=== PATIENT | male | born 1990 | race Caucasian/White ===

== ENCOUNTER 2018-04-09 07:20 | Observation (INO) ==
[2018-04-09 07:58] LABS: Basophils # 0.1 K/mcL (0.0-0.2); Basophils % 0.4 %; Eosinophils # 0.2 K/mcL (0.0-0.6); Eosinophils % 1.5 %; Hematocrit 39.8 % (37.5-50.1); Hemoglobin 13.8 g/dL (12.9-16.9); Immature Granulocytes % 0.3 % (0-4); Lymphocytes # 3.5 K/mcL (0.6-4.6); Mean Corpuscular HGB Conc 34.7 g/dL (31.6-35.5); Mean Corpuscular Hemoglobin 31.4 pg (28.0-33.3); Mean Corpuscular Volume 90.5 fL (83.0-100.0); Mean Platelet Volume 8.2 fL (9.4-12.4); Monocytes # 1.4 K/mcL (0.0-1.3); Monocytes % 9.1 %; Platelet Count 325 K/mcL (140-400); Red Cell Distribution Width 12.6 % (11.5-14.5); Segmented Neutrophils % 65.7 %
[2018-04-09 08:17] LABS: BUN/Creatinine Ratio 20 (6-26); Blood Urea Nitrogen 12 mg/dL (6-20); Calcium 9.4 mg/dL (8.6-10.3); Carbon Dioxide 30 mEq/L (23-29); Chloride 100 mEq/L (98-107); Glucose 88 mg/dL (70-105); Osmolality,Calculated 281 (280-300); Sodium 136 mEq/L (136-145); eGFR For Non-African Americans > 60 (> 60)
--- NOTE | 2018-04-09 08:48 | Emergency Department Note ---
Disposition Clinical Impression: Cellulitis Qualifiers: Site of cellulitis: extremity Site of cellulitis of extremity: upper extremity Laterality: right Qualified Code(s): L03.113 - Cellulitis of right upper limb Disposition: Home, Self-Care Condition: Good Time of Disposition: 13:06 General Adult HPI - General Chief complaint: ED Extremity Injury, Upper Stated complaint: LUE pain Time Seen by Provider: 04/09/18 07:27 Source: patient, family Mode of arrival: private vehicle Limitations: no limitations Nursing Notes Reviewed: Yes Vital Signs Reviewed: Yes - History of Present Illness HPI Narrative: Chao is a pleasant 27-year-old male with a past medical history of IVDA. He presents the emergency room with a chief complaint of pain and swelling to his left forearm 2 days. He states that he is concerned for a splinter. He denies fevers chest pain shortness of breath. He notes that his cigarette smoker. He is otherwise healthy. He is not have a family practice physician. Onset (ago): day(s) Location: right, upper extremity Pain Scale: 7 Quality: aching Consistency: constant Improves with: nothing Worsens with: movement Associated symptoms: Reports: denies other symptoms Treatments Prior to Arrival: NSAID - Related Data Previous Rx's Medication Instructions Recorded Sulfamethoxazole/Trimeth DS 1 each PO BID 7 Days tablet 12/02/16 [Bactrim DS] Allergies Allergy/AdvReac Type Severity Reaction Status Date / Time No Known Allergies Allergy Verified 12/02/16 14:51 All systems ED: reviewed and negative except as stated. Review of Systems: As Per HPI Past Medical History - Past Medical History Medical history: Reports: no medical history Psychiatric history: Reports: depression - Social History Smoking Status: Current every day smoker Smokeless Tobacco Status: No Alcohol use: Reports: none Drug use: Reports: none Physical Exam Generalized swelling to right forearm with mild erythema. Elbow and wrist do not appear to be involved. There is no erythema. 2+ radial pulse. No swelling in hand. No Knavel signs. A few track sierra are present on right arm. - General General appearance: alert, in no apparent distress, appears intoxicated - Head Head exam: atraumatic - Eye Eye exam: Present: normal appearance, PERRL, EOMI - ENT ENT exam: normal exam - Neck Neck exam: Present: normal inspection - Chest Chest inspection: Present: normal inspection - Respiratory Respiratory exam: Present: normal lung sounds bilaterally - Cardiovascular Cardiovascular exam: Present: regular rate - Abdominal Exam Abdominal exam: Present: soft - Expanded Upper Extremity Exam Elbow exam: Present: normal inspection Forearm/Wrist exam: Present: tenderness, swelling. Absent: deformity, crepitus, dislocation, tenderness over anatomical snuff box Hand exam: Present: normal inspection Vascular exam: Normal: capillary refill - Expanded Lower Extremity Exam Neurovascular/Tendon exam: Present: normal capillary refill - Neurological Exam Neurological exam: Present: alert, oriented X3 - Psychiatric Psychiatric exam: Present: normal affect, normal mood Course Vital Signs Temperature 99.1 F 04/09/18 07:26 Pulse Rate 120 04/09/18 07:26 Respiratory Rate 18 04/09/18 07:26 Blood Pressure 123/82 04/09/18 07:26 O2 Sat by Pulse Oximetry 99 04/09/18 07:26 Temperature 99.1 F 04/09/18 07:37 Pulse Rate 114 04/09/18 11:52 Respiratory Rate 12 04/09/18 11:52 Blood Pressure 125/87 04/09/18 11:52 O2 Sat by Pulse Oximetry 100 04/09/18 11:52 Oxygen Delivery Oxygen Delivery Room Air Medical Decision Making - MDM Narrative Medical decision making narrative: No discrete fluid abscess,. Patient does meet SIRS criteria with a 15,000 white count and is in the 120s. Vancomycin was started in the emergency room. Patient was kept nothing by mouth prior to results of CT being resulted. Patient was admitted to monitor cellulitis for worsening infection in pain. - Medical Records Medical records reviewed: Yes I reviewed the patient's medical records. - Lab Data Lab results reviewed: Yes I reviewed the patient's lab results. Result diagrams: 04/09/18 07:49 04/09/18 07:49 Lab Results 04/09/18 04/09/18 04/09/18 Range/Units 07:49 07:49 09:12 WBC 15.2 H (4.3-11.1) K/mcL RBC 4.40 (4.19-5.50) M/mcL Hgb 13.8 (12.9-16.9) g/dL Hct 39.8 (37.5-50.1) % MCV 90.5 (83.0-100.0) fL MCH 31.4 (28.0-33.3) pg MCHC 34.7 (31.6-35.5) g/dL RDW 12.6 (11.5-14.5) % Plt Count 325 (140-400) K/mcL MPV 8.2 L (9.4-12.4) fL Immature Gran % 0.3 (0-4) % Seg Neutrophils % 65.7 % Lymphocytes % 23.0 % Monocytes % 9.1 % Eosinophils % 1.5 % Basophils % 0.4 % Neutrophils # 10.0 H (1.6-8.9) K/mcL Lymphocytes # 3.5 (0.6-4.6) K/mcL Monocytes # 1.4 H (0.0-1.3) K/mcL Eosinophils # 0.2 (0.0-0.6) K/mcL Basophils # 0.1 (0.0-0.2) K/mcL Sodium 136 (136-145) mEq/L Potassium 3.0 L (3.5-5.1) mEq/L Chloride 100 (98-107) mEq/L Carbon Dioxide 30 H (23-29) mEq/L BUN 12 (6-20) mg/dL Creatinine 0.60 L (0.70-1.30) mg/dL Est GFR ( Amer) > 60 (> 60) Est GFR (Non-Af Amer) > 60 (> 60) BUN/Creatinine Ratio 20 (6-26) Glucose 88 (70-105) mg/dL Calculated Osmolality 281 (280-300) Lactic Acid 1.0 (0.5-2.2) mmol/L Calcium 9.4 (8.6-10.3) mg/dL - Radiology Data Radiology results reviewed: Yes I reviewed the patient's radiology results.
[2018-04-09] MEDS ORDERED: Isovue-370 500 ML INFUS..BTL IV ONE (08:51)
[2018-04-09] MEDS ORDERED: Ketamine *HR* 15 MG in 0.9 % Sodium Chloride 100 ML IVPB ONE (08:52)
--- NOTE | 2018-04-09 09:27 | Emergency Department Note ---
Disposition Clinical Impression: Cellulitis Qualifiers: Site of cellulitis: extremity Site of cellulitis of extremity: upper extremity Laterality: right Qualified Code(s): L03.113 - Cellulitis of right upper limb Disposition: Home, Self-Care Condition: Good General Adult HPI - General Chief complaint: ED Extremity Injury, Upper Stated complaint: LUE pain Time Seen by Provider: 04/09/18 07:27 - History of Present Illness Pain Scale: 7 - Related Data Previous Rx's Medication Instructions Recorded Sulfamethoxazole/Trimeth DS 1 each PO BID 7 Days tablet 12/02/16 [Bactrim DS] Allergies Allergy/AdvReac Type Severity Reaction Status Date / Time No Known Allergies Allergy Verified 12/02/16 14:51 Past Medical History - Past Medical History Medical history: Reports: no medical history Psychiatric history: Reports: depression - Social History Smoking Status: Current every day smoker Smokeless Tobacco Status: No Alcohol use: Reports: none Drug use: Reports: none Physical Exam - General General appearance: alert, in no apparent distress, appears intoxicated Course Vital Signs Temperature 99.1 F 04/09/18 07:26 Pulse Rate 120 04/09/18 07:26 Respiratory Rate 18 04/09/18 07:26 Blood Pressure 123/82 04/09/18 07:26 O2 Sat by Pulse Oximetry 99 04/09/18 07:26 Temperature 99.1 F 04/09/18 07:37 Pulse Rate 114 04/09/18 12:56 Respiratory Rate 13 04/09/18 12:56 Blood Pressure 136/97 04/09/18 12:56 O2 Sat by Pulse Oximetry 97 04/09/18 12:56 Oxygen Delivery Oxygen Delivery Room Air Medical Decision Making - Lab Data Result diagrams: 04/09/18 07:49 04/09/18 07:49 Lab Results 04/09/18 04/09/18 04/09/18 Range/Units 07:49 07:49 09:12 WBC 15.2 H (4.3-11.1) K/mcL RBC 4.40 (4.19-5.50) M/mcL Hgb 13.8 (12.9-16.9) g/dL Hct 39.8 (37.5-50.1) % MCV 90.5 (83.0-100.0) fL MCH 31.4 (28.0-33.3) pg MCHC 34.7 (31.6-35.5) g/dL RDW 12.6 (11.5-14.5) % Plt Count 325 (140-400) K/mcL MPV 8.2 L (9.4-12.4) fL Immature Gran % 0.3 (0-4) % Seg Neutrophils % 65.7 % Lymphocytes % 23.0 % Monocytes % 9.1 % Eosinophils % 1.5 % Basophils % 0.4 % Neutrophils # 10.0 H (1.6-8.9) K/mcL Lymphocytes # 3.5 (0.6-4.6) K/mcL Monocytes # 1.4 H (0.0-1.3) K/mcL Eosinophils # 0.2 (0.0-0.6) K/mcL Basophils # 0.1 (0.0-0.2) K/mcL Sodium 136 (136-145) mEq/L Potassium 3.0 L (3.5-5.1) mEq/L Chloride 100 (98-107) mEq/L Carbon Dioxide 30 H (23-29) mEq/L BUN 12 (6-20) mg/dL Creatinine 0.60 L (0.70-1.30) mg/dL Est GFR ( Amer) > 60 (> 60) Est GFR (Non-Af Amer) > 60 (> 60) BUN/Creatinine Ratio 20 (6-26) Glucose 88 (70-105) mg/dL Calculated Osmolality 281 (280-300) Lactic Acid 1.0 (0.5-2.2) mmol/L Calcium 9.4 (8.6-10.3) mg/dL Attestation Statement - Attestation Attestation: For this encounter, I have reviewed the [employer] DEVELOPMENT MANAGER or PA documentation, treatment plan, and medical decision making; and I have had face to face time with this patient. Significant swelling and pain to the forearm. Last use IV drugs a day or 2 ago, last injection in this arm about a month ago. No crepitus. No obvious abscess on exam. He has limitation of motion secondary to pain but the hand is neurovascularly intact and I do not suspect compartment syndrome. IV vancomycin administered, CT with contrast ordered. Sub-dissociative ketamine ordered for pain.
[2018-04-09 12:31] LABS: HIV-1&2 Antibody & p24 Ag Nonreactive (Nonreactive); Hepatitis B Core IgM Nonreactive (Nonreactive); Hepatitis B Surface Antigen Nonreactive (Nonreactive)
[2018-04-09] MEDS: Nicotine 21 MG PATCH.TD24 TD SCH (13:10)
--- NOTE | 2018-04-09 13:13 | Internal Med History&Physical ---
Date of Encounter: 04/09/18 Time of Encounter: 13:11 Internal Medicine - H&P: HPI Chief complaint: right arm swelling Admitted From: Emergency Dept Plans for Post Hospital Care: Home History of present illness: Mr. Berman is a 27 year old male Patient with history of IV drug abuse, depression, smoking history. Patient presented emergency room with left arm swelling and redness CT scan of the arm shows no abscess the chest cellulitis white count 15,000 patient started on vancomycin will be admitted for right arm cellulitis Past Med Surg Social Fam HX - Past Medical History Medical history: no medical history Psychiatric history: depression - Social History Smoking Status: Current every day smoker Smokeless Tobacco Status: No Alcohol use: none Drug use: none Internal Medicine - H&P: Meds Sulfamethoxazole/Trimeth DS [Bactrim DS] 1 each PO BID 7 Days tablet 12/02/16 [Rx] Allergy/AdvReac Type Severity Reaction Status Date / Time No Known Allergies Allergy Verified 12/02/16 14:51 All Systems PM: A 10-system review of systems was performed and is negative for pertinent findings except as documented above in the HPI. - Constitutional Vitals: Temp Pulse Resp BP Pulse Ox 99.1 F 114 13 136/97 97 04/09/18 07:37 04/09/18 12:56 04/09/18 12:56 04/09/18 12:56 04/09/18 12:56 Exam: done - Eye Eye exam: Present: PERRL, conjuntiva pink, sclera anicteric Pupils: Present: PERRL - Neck Neck exam general surgery: Present: supple, trachea midline. Absent: lymphadenopathy - Respiratory Respiratory exam: Present: CTAB. Absent: accessory muscle use, rales, rhonchi, wheezes - Cardiovascular Cardiovascular exam: Present: RRR, +S1, +S2. Absent: diastolic murmur, gallop, rubs, systolic murmur - GI/Abdominal GI/Abdominal exam: Present: normal bowel sounds, soft, no peritoneal signs. Absent: distended, tenderness - Extremities Exam Extremities exam: Present: tenderness, warm Internal Med - H&P Results - Labs CBC & Chem 7: 04/09/18 07:49 04/09/18 07:49 Labs: Short CBC 04/09/18 Range/Units 07:49 WBC 15.2 H (4.3-11.1) K/mcL Hgb 13.8 (12.9-16.9) g/dL Hct 39.8 (37.5-50.1) % Plt Count 325 (140-400) K/mcL Neutrophils # 10.0 H (1.6-8.9) K/mcL BMP 04/09/18 07:49 Sodium 136 Potassium 3.0 L Chloride 100 Carbon Dioxide 30 H BUN 12 Creatinine 0.60 L Glucose 88 Calcium 9.4 - Impressions ITS Impressions Forearm X-Ray 04/09/18 07:44 IMPRESSION: 1. Soft tissue swelling along the anterior and medial aspect of the right forearm which may be related to contusion versus infection. No retained radiopaque foreign body. 2. No fracture. D/ / 04/09/2018 08:24:26 Gabriel Posada MD / zora Interpreting Provider: Gabriel Posada MD Forearm CT 04/09/18 08:51 IMPRESSION: 1. Nonspecific swelling of the medial forearm with fluid extending between the fascia of the flexor musculature along the mid forearm. This could represent cellulitis in the appropriate clinical setting. 2. No drainable fluid collection is present. 3. No foci of soft tissue air. D/ / Anton Pedroza / Anton Pedroza Interpreting Provider: Anton Pedroza - Assessment and plan (1) IV drug abuse Current Visit: Yes Status: Chronic Assessment and plan: Patient reports IV drug admitted for about 2 years (2) Depression Current Visit: Yes Status: Chronic Assessment and plan: Resume home medication Qualifiers: Depression Type: unspecified Qualified Code(s): F32.9 - Major depressive disorder, single episode, unspecified (3) Hypokalemia Current Visit: Yes Status: Acute Assessment and plan: Replace potassium and recheck in a.m. (4) Cellulitis Current Visit: Yes Status: Acute Assessment and plan: Patient started on vancomycin CT does not show any abscess Qualifiers: Site of cellulitis: extremity Site of cellulitis of extremity: upper extremity Laterality: right Qualified Code(s): L03.113 - Cellulitis of right upper limb - Time Spent With Patient Total time spent is greater than 50% in coordination of care (as documented) at patient's floor/unit and/or counseling patient:
[2018-04-09] MEDS ORDERED: Naloxone 0.4 MG/ML INJ IVP PRN (13:17)
[2018-04-09 13:22] LABS: Hepatitis A Antibody IgM Reactive (Nonreactive)
[2018-04-09 13:23] LABS: Hepatitis C Virus Antibody Reactive (Nonreactive)
[2018-04-09] MEDS: Ketorolac 30 MG/ML VIAL IVP PRN ×2 (14:49→21:56)
[2018-04-10 03:59] LABS: Hematocrit 38.8 % (37.5-50.1); Hemoglobin 13.5 g/dL (12.9-16.9); Mean Corpuscular HGB Conc 34.8 g/dL (31.6-35.5); Mean Corpuscular Hemoglobin 31.4 pg (28.0-33.3); Mean Corpuscular Volume 90.2 fL (83.0-100.0); Mean Platelet Volume 8.4 fL (9.4-12.4); Platelet Count 313 K/mcL (140-400); Red Cell Distribution Width 12.7 % (11.5-14.5)
[2018-04-10 04:21] LABS: Alanine Aminotransferase 106 Units/L (7-52); Albumin 3.9 g/dL (3.5-5.7); Albumin/Globulin Ratio 1.2 (1.1-2.2); Alkaline Phosphatase 101 Units/L (34-104); Aspartate Amino Transferase 55 Units/L (13-39); BUN/Creatinine Ratio 22 (6-26); Bilirubin,Total 0.9 mg/dL (0.3-1.0); Blood Urea Nitrogen 11 mg/dL (6-20); Calcium 9.1 mg/dL (8.6-10.3); Carbon Dioxide 27 mEq/L (23-29); Chloride 102 mEq/L (98-107); Globulin 3.3 g/dL (2.4-3.5); Glucose 106 mg/dL (70-105); Magnesium 2.1 mg/dL (1.6-2.6); Osmolality,Calculated 278 (280-300); Potassium 3.5 mEq/L (3.5-5.1); Sodium 134 mEq/L (136-145); Total Protein 7.2 g/dL (6.4-8.9); eGFR For Non-African Americans > 60 (> 60)
[2018-04-10] MEDS: Ketorolac 30 MG/ML VIAL IVP PRN ×3 (05:55→21:45)
[2018-04-10] MEDS: Nicotine 21 MG PATCH.TD24 TD SCH (10:07)
--- NOTE | 2018-04-10 14:18 | Internal Med Progress Note ---
Hospitalist Progress Note - Encounter Date of Encounter: 04/10/18 Time of Encounter: 14:15 - Subjective Interval History: Mr. Marinelli is a 27-year-old male with history of IV drug abuse. He presents to ED with right arm swelling and redness as well as pain and decreased ROM of right hand. Subsequently, he was a minute for IV antibiotics was started on [place] ncomycin. He reports that the cellulitis is improving as well as range of motion. He is continuing to have pain in his right forearm currently is tolerable. - Exam Vitals: Temp Pulse Resp BP Pulse Ox 98.7 F 105 16 127/72 99 04/10/18 11:11 04/10/18 11:11 04/10/18 11:11 04/10/18 11:11 04/10/18 11:11 Exam: PHYSICAL EXAMINATION: GENERAL: NAD, a and O 3 NECK: Supple. No carotid bruits. No lymphadenopathy or thyromegaly. LUNGS: Clear to auscultation B/L AP and L. HEART: Regular rate and rhythm, S1, S2 without murmur. ABDOMEN: Soft, nontender, and nondistended. Positive bowel sounds. No hepatosp lenomegaly was noted. EXTREMITIES: Without any cyanosis, clubbing, rash, lesions or edema. Without Janeway's lesions or Osler's nodes, visible track sierra throughout B/L upper extremities most notably on hand NEUROLOGIC: Cranial nerves II through XII are grossly intact. PSYCHIATRIC: Appropriate affect, denies SI/HI, without agitation or anxiety SKIN: Right forearm mildly swollen along superior dorsal aspect. It is without induration or fluctuance. Distal circulation intact. Full range of motion to right hand - Assessment and Plan (1) Cellulitis Current Visit: Yes Status: Acute Assessment and Plan: Cellulitis of dorsal aspect of right forearm secondary to IVDU Continue to treat with IV vancomycin pharmacy dosing Cellulitis improving overnight Continues to have leukocytosis with WBC of 16.1 However he is nontoxic appearing, afebrile without tachypnea and hemodynamically stable. 2 positive SIRS criteria with tachycardia and leukocytosis however does not meet sepsis qualifications Blood cultures pending-follow cultures and adjust antibiotics accordingly (2) Hypokalemia Current Visit: Yes Status: Resolved (3) IV drug abuse Current Visit: Yes Status: Chronic Assessment and Plan: Chronic Treat as above (4) Hepatitis C Current Visit: Yes Status: Acute Assessment and Plan: Will need outpatient follow-up with GI Mild transaminitis Check hepatic panel The patient is without jaundice and sclera nonicteric (5) Hepatitis A Current Visit: Yes Status: Acute - Time Spent with Patient Total time spent is greater than 50% in coordination of care (as documented) at patient's floor/unit and/or counseling patient: less than 15 minutes Plan of Care Discussed with: patient Internal Medicine: Result - Labs CBC & Chem 7: 04/10/18 03:47 04/10/18 03:46 Labs: Short CBC 04/10/18 Range/Units 03:47 WBC 16.1 H (4.3-11.1) K/mcL Hgb 13.5 (12.9-16.9) g/dL Hct 38.8 (37.5-50.1) % Plt Count 313 (140-400) K/mcL BMP 04/10/18 03:46 Sodium 134 L Potassium 3.5 Chloride 102 Carbon Dioxide 27 BUN 11 Creatinine 0.50 L Glucose 106 H Calcium 9.1 Liver Function 04/10/18 Range/Units 03:46 Total Bilirubin 0.9 (0.3-1.0) mg/dL AST 55 H (13-39) Units/L ALT 106 H (7-52) Units/L Alkaline Phosphatase 101 (34-104) Units/L Albumin 3.9 (3.5-5.7) g/dL Consult Discharge Plan - Plan Referrals: NONE,PCP [Primary Care Provider] - (1) Cellulitis Qualifiers: Site of cellulitis: extremity Site of cellulitis of extremity: upper extremity Laterality: right Qualified Code(s): L03.113 - Cellulitis of right upper limb (4) Hepatitis C Qualifiers: Hepatic coma status: without hepatic coma
[2018-04-10 15:27] LABS: Albumin 3.7 g/dL (3.5-5.7); Albumin/Globulin Ratio 1.1 (1.1-2.2); Bilirubin,Direct 0.2 mg/dL (0.0-0.2); Bilirubin,Indirect 0.4 mg/dL (0.0-1.2); Bilirubin,Total 0.6 mg/dL (0.3-1.0); Globulin 3.3 g/dL (2.4-3.5)
[2018-04-11 05:33] LABS: Basophils # 0.1 K/mcL (0.0-0.2); Basophils % 0.5 %; Eosinophils # 0.5 K/mcL (0.0-0.6); Eosinophils % 3.3 %; Hematocrit 38.5 % (37.5-50.1); Hemoglobin 13.1 g/dL (12.9-16.9); Immature Granulocytes % 0.2 % (0-4); Lymphocytes # 3.7 K/mcL (0.6-4.6); Lymphocytes % 25.1 %; Mean Corpuscular Hemoglobin 31.1 pg (28.0-33.3); Mean Corpuscular Volume 91.4 fL (83.0-100.0); Mean Platelet Volume 8.8 fL (9.4-12.4); Monocytes # 1.4 K/mcL (0.0-1.3); Monocytes % 9.5 %; Platelet Count 328 K/mcL (140-400); Red Blood Count 4.21 M/mcL (4.19-5.50); Red Cell Distribution Width 12.8 % (11.5-14.5); Segmented Neutrophils % 61.4 %
[2018-04-11 05:53] LABS: BUN/Creatinine Ratio 19 (6-26); Blood Urea Nitrogen 9 mg/dL (6-20); Calcium 8.5 mg/dL (8.6-10.3); Carbon Dioxide 27 mEq/L (23-29); Chloride 104 mEq/L (98-107); Glucose 111 mg/dL (70-105); Osmolality,Calculated 285 (280-300); Potassium 3.3 mEq/L (3.5-5.1); Sodium 138 mEq/L (136-145); eGFR For Non-African Americans > 60 (> 60)
[2018-04-11] MEDS: Ketorolac 30 MG/ML VIAL IVP PRN ×3 (08:35→21:05)
[2018-04-11] MEDS: Nicotine 21 MG PATCH.TD24 TD SCH (08:35)
[2018-04-11] MEDS ORDERED: Aminoglycoside Consult 1 EACH MC ONE (12:44)
--- NOTE | 2018-04-11 13:33 | Internal Med Progress Note ---
Hospitalist Progress Note - Encounter Date of Encounter: 04/11/18 Time of Encounter: 13:24 - Subjective Interval History: Mr. Berman is a 27-year-old male with history of IV drug abuse. He presents to ED with right arm swelling and redness as well as pain and decreased ROM of right hand. He is concerned that the swelling in his forearm may have increased overnight. He is continuing to have pain in his right forearm but reports that the pain medication is helping. - Exam Vitals: Temp Pulse Resp BP Pulse Ox 98.2 F 108 19 144/78 99 04/11/18 11:51 04/11/18 11:51 04/11/18 11:51 04/11/18 11:51 04/11/18 11:51 Exam: PHYSICAL EXAMINATION: GENERAL: NAD, a and O 3 NECK: Supple. No carotid bruits. No lymphadenopathy or thyromegaly. LUNGS: Clear to auscultation B/L AP and L. HEART: Regular rate and rhythm, S1, S2 without murmur. ABDOMEN: Soft, nontender, and nondistended. Positive bowel sounds. No hepatosplenomegaly was noted. EXTREMITIES: Without any cyanosis, clubbing, rash, lesions or edema. visible track sierra throughout B/L upper extremities most notably on hands. Rt dorsal forearm is swollen and firm, there is a small palpable area of induration along the surface of the brachial radialis without fluctuance. Distal circulation remains intact, full ROM NEUROLOGIC: Cranial nerves II through XII are grossly intact. PSYCHIATRIC: Appropriate affect, denies SI/HI, without agitation or anxiety SKIN: Track sierra on bilateral hands - Assessment and Plan (1) Cellulitis Current Visit: Yes Status: Acute Assessment and Plan: Cellulitis of dorsal aspect of right forearm secondary to IVDU Continue to treat with IV vancomycin pharmacy dosing Cellulitis improving overnight Continues to have leukocytosis with WBC of 16.1 However he is nontoxic appearing, afebrile without tachypnea and hemodynamically stable. 2 positive SIRS criteria with tachycardia and leukocytosis however does not meet sepsis qualifications Blood cultures pending-follow cultures and adjust antibiotics accordingly 04/11-WBC improving. Patient appears non toxic. Swelling stable overnight. Change ABX to Clindamycin and add culturelle. (2) Hypokalemia Current Visit: Yes Status: Resolved Assessment and Plan: potassium 3.3 replete PRN (3) IV drug abuse Current Visit: Yes Status: Chronic (4) Hepatitis C Current Visit: Yes Status: Acute Assessment and Plan: Will need outpatient follow-up with GI Mild transaminitis Check hepatic panel The patient is without jaundice and sclera nonicteric (5) Hepatitis A Current Visit: Yes Status: Acute - Time Spent with Patient Total time spent is greater than 50% in coordination of care (as documented) at patient's floor/unit and/or counseling patient: less than 15 minutes Plan of Care Discussed with: patient Internal Medicine: Result - Labs CBC & Chem 7: 04/11/18 04:19 04/11/18 04:19 Labs: Short CBC 04/11/18 Range/Units 04:19 WBC 14.7 H (4.3-11.1) K/mcL Hgb 13.1 (12.9-16.9) g/dL Hct 38.5 (37.5-50.1) % Plt Count 328 (140-400) K/mcL Neutrophils # 9.0 H (1.6-8.9) K/mcL BMP 04/11/18 04:19 Sodium 138 Potassium 3.3 L Chloride 104 Carbon Dioxide 27 BUN 9 Creatinine 0.48 L Glucose 111 H Calcium 8.5 L Liver Function 04/10/18 Range/Units 14:49 Total Bilirubin 0.6 (0.3-1.0) mg/dL Direct Bilirubin 0.2 (0.0-0.2) mg/dL AST 42 H (13-39) Units/L ALT 95 H (7-52) Units/L Alkaline Phosphatase 97 (34-104) Units/L Albumin 3.7 (3.5-5.7) g/dL Consult Discharge Plan - Plan Referrals: NONE,PCP [Primary Care Provider] - (1) Cellulitis Qualifiers: Site of cellulitis: extremity Site of cellulitis of extremity: upper extremity Laterality: right Qualified Code(s): L03.113 - Cellulitis of right upper limb (4) Hepatitis C Qualifiers: Hepatic coma status: without hepatic coma
[2018-04-11] MEDS: Clindamycin 900 MG/50 ML 900 MG/50 ML IV.SOLN IVPB SCH (16:10)
[2018-04-12] MEDS: Clindamycin 900 MG/50 ML 900 MG/50 ML IV.SOLN IVPB SCH ×2 (00:12→10:06)
[2018-04-12 04:54] LABS: Basophils # 0.1 K/mcL (0.0-0.2); Basophils % 0.5 %; Eosinophils # 0.4 K/mcL (0.0-0.6); Eosinophils % 2.7 %; Hematocrit 34.5 % (37.5-50.1); Hemoglobin 12.3 g/dL (12.9-16.9); Immature Granulocytes % 0.4 % (0-4); Lymphocytes # 2.3 K/mcL (0.6-4.6); Lymphocytes % 17.4 %; Mean Corpuscular HGB Conc 35.7 g/dL (31.6-35.5); Mean Corpuscular Hemoglobin 32.1 pg (28.0-33.3); Mean Corpuscular Volume 90.1 fL (83.0-100.0); Mean Platelet Volume 8.9 fL (9.4-12.4); Monocytes # 1.2 K/mcL (0.0-1.3); Monocytes % 8.9 %; Neutrophils # 9.4 K/mcL (1.6-8.9); Platelet Count 325 K/mcL (140-400); Red Blood Count 3.83 M/mcL (4.19-5.50); Red Cell Distribution Width 12.5 % (11.5-14.5); Segmented Neutrophils % 70.1 %
[2018-04-12 05:11] LABS: BUN/Creatinine Ratio 19 (6-26); Blood Urea Nitrogen 9 mg/dL (6-20); Calcium 8.4 mg/dL (8.6-10.3); Carbon Dioxide 26 mEq/L (23-29); Chloride 106 mEq/L (98-107); Glucose 99 mg/dL (70-105); Osmolality,Calculated 285 (280-300); Potassium 3.8 mEq/L (3.5-5.1); Sodium 138 mEq/L (136-145); eGFR For Non-African Americans > 60 (> 60)
[2018-04-12] MEDS ORDERED: Lactobacillus 1 EACH CAP.SPRINK PO SCH (09:00)
--- NOTE | 2018-04-12 09:21 | Internal Med Progress Note ---
Hospitalist Progress Note - Encounter Date of Encounter: 04/12/18 Time of Encounter: 09:20 - Exam Vitals: Temp Pulse Resp BP Pulse Ox 99.9 F H 102 18 117/72 99 04/12/18 06:59 04/12/18 06:59 04/12/18 06:59 04/12/18 06:59 04/12/18 06:59 - Assessment and Plan (1) Cellulitis Current Visit: Yes Status: Acute (2) IV drug abuse Current Visit: Yes Status: Chronic (3) Hypokalemia Current Visit: Yes Status: Resolved (4) Hepatitis A Current Visit: Yes Status: Acute (5) Hepatitis C Current Visit: Yes Status: Acute - Time Spent with Patient Total time spent is greater than 50% in coordination of care (as documented) at patient's floor/unit and/or counseling patient: Internal Medicine: Result - Labs CBC & Chem 7: 04/12/18 04:05 04/12/18 04:05 Labs: Short CBC 04/12/18 Range/Units 04:05 WBC 13.3 H (4.3-11.1) K/mcL Hgb 12.3 L (12.9-16.9) g/dL Hct 34.5 L (37.5-50.1) % Plt Count 325 (140-400) K/mcL Neutrophils # 9.4 H (1.6-8.9) K/mcL BMP 04/12/18 04:05 Sodium 138 Potassium 3.8 Chloride 106 Carbon Dioxide 26 BUN 9 Creatinine 0.48 L Glucose 99 Calcium 8.4 L Consult Discharge Plan - Plan Referrals: NONE,PCP [Primary Care Provider] - (1) Cellulitis Qualifiers: Site of cellulitis: extremity Site of cellulitis of extremity: upper extremity Laterality: right Qualified Code(s): L03.113 - Cellulitis of right upper limb (5) Hepatitis C Qualifiers: Hepatic coma status: without hepatic coma
[2018-04-12] MEDS: Nicotine 21 MG PATCH.TD24 TD SCH (10:06)
[2018-04-12] MEDS: Ketorolac 30 MG/ML VIAL IVP PRN (11:05)
[2018-04-12 11:35] VITALS: BP 130/79
--- NOTE | 2018-04-12 14:10 | Discharge Summary ---
- NOTES TO OUTPATIENT PROVIDER Notes to Outpatient Provider: History of IV drug use was treated for swelling and right forearm blood cultures were obtained which were negative-hepatitis ANC were positive liver panel completed we will need to monitor was started on clindamycin-discharge with Bactrim Orders not resulted at time of discharge: Pending orders 04/09/18 14:29 Culture,Blood [BC] Routine 04/10/18 03:46 Hepatitis A Antibody Total Stat 04/10/18 03:47 Hepatitis C Virus Quant Stat 04/13/18 04:00 Basic Metabolic Panel AM 0400 Complete Blood Count [HEME] AM 0400 Date of Encounter: 04/12/18 Time of Encounter: 14:08 - Discharge Diagnosis (1) Cellulitis Priority: Primary Status: Acute Qualifiers: Site of cellulitis: extremity Site of cellulitis of extremity: upper extremity Laterality: right Qualified Code(s): L03.113 - Cellulitis of right upper limb (2) IV drug abuse Priority: Secondary Status: Chronic (3) Hypokalemia Priority: Secondary Status: Resolved (4) Hepatitis A Priority: Secondary Status: Acute Qualifiers: Hepatic coma status: without hepatic coma Qualified Code(s): B15.9 - Hepatitis A without hepatic coma (5) Hepatitis C Priority: Secondary Status: Acute Qualifiers: Viral hepatitis chronicity: unspecified Hepatic coma status: without hepatic coma Qualified Code(s): B19.20 - Unspecified viral hepatitis C without hepatic coma Hospital course: Mr. Berman is a 27 year old male patient has history of IV drug use presented to the ED with right arm swelling and redness as well as pain and decreased range of motion of right hand. Blood cultures were obtained and were negative no fevers-white count has trended down. Lab work was obtained which did show positive hepatitis panel of hepatitis ANC. Liver panel was completed and unremarkable. He was given vancomycin and was transitioned to clindamycin. Swelling in his right arm did improve he is able to open and close his hand he has good pulses and brisk cap refill decreased redness. Patient will be switched to oral Bactrim and advised to follow-up with primary care provider. He was given a prescription for Bactrim for 10 days to complete a two-week course - Time Spent with Patient Total time spent providing and/or coordinating discharge services: - Discharge Medications Prescriptions: Sulfamethoxazole/Trimeth DS [Bactrim DS] 1 each PO BID #20 tablet Home Medications: Sulfamethoxazole/Trimeth DS [Bactrim DS] 1 each PO BID #20 tablet 04/12/18 [Rx] Allergies/Adverse Reactions: Allergy/AdvReac Type Severity Reaction Status Date / Time No Known Allergies Allergy Verified 12/02/16 14:51 Date of admission: 04/09/18 12:43 Primary care physician: PCP NONE Discharging clinician: Ynes Johnson Anticipated date of discharge: 04/12/18 - Constitutional Vitals: Temp Pulse Resp BP Pulse Ox 99.0 F 91 15 130/79 99 04/12/18 11:32 04/12/18 11:32 04/12/18 11:32 04/12/18 11:32 04/12/18 11:32 Exam: PHYSICAL EXAMINATION: GENERAL: NAD, a and O 3 NECK: Supple. No carotid bruits. No lymphadenopathy or thyromegaly. LUNGS: Clear to auscultation B/L AP and L. HEART: Regular rate and rhythm, S1, S2 without murmur. ABDOMEN: Soft, nontender, and nondistended. Positive bowel sounds. No hepatosplenomegaly was noted. EXTREMITIES: Without any cyanosis, clubbing, rash, lesions or edema. visible track sierra throughout B/L upper extremities most notably on hands. Rt dorsal forearm is swollen and slightly red there is a small palpable area of induration along the surface of the brachial radialis without fluctuance. Distal circulation remains intact, full ROM NEUROLOGIC: Cranial nerves II through XII are grossly intact. PSYCHIATRIC: Appropriate affect, denies SI/HI, without agitation or anxiety SKIN: Track sierra on bilateral hands - Patient Status Disposition: Home, Self-Care Condition: Good Functional capacity at discharge: independent ambulation Overall status at discharge: patient is back to baseline - Discharge Instructions Instructions: Cellulitis (DC) Follow Up With: Rick Kapadia DO [Partnered Physician] - 04/19/18 3:30 pm NONE,PCP [Primary Care Provider] - - Diet and Activity Activity: increase activity as tolerated Diet: advance to your usual diet
[2018-04-13 05:34] LABS: HCV Quant Log NOT DETECTED log IU/mL
[2018-04-13 14:39] LABS: HCV Quant Interpretation NOT DETECTED (Not Detected)
== END 2018-04-12 15:54 | disposition home or self-care (01) ==
LOC: 3BNU 07:20 → EMEROOARM 07:20 → 3BNU 13:41
PROVIDERS: ADMIT Internal Medicine Cardiovascular Disease; ATTEND Internal Medicine Cardiovascular Disease